=== PATIENT | female | born 1960 | race Two or more races ===

== ENCOUNTER 2021-04-19 14:13 | Outpatient (CLI) | payer BC, SELFPAY ==
--- NOTE | ~2021-04-19 | US_ITS ---
EXAMINATION: US thyroid DATE: 04/19/2021 15:20 INDICATION: Nontoxic goiter TECHNIQUE: Multiple ultrasound images of the thyroid were obtained. COMPARISON: None. FINDINGS: The right thyroid lobe measures 7.6 x 2.6 x 2.8 cm. The left thyroid lobe measures 6.6 x 2.4 x 2.9 c m. The isthmus measures 9 mm in thickness. No discrete nodules identified. There is heterogeneous ech ogenicity with coarsened echotexture and increased vascular flow on color Doppler throughout the thyr oid gland. IMPRESSION: 1. Enlarged heterogeneous and hypervascular thyroid consistent with thyroiditis. Reviewed, dictated and finalized at [facility]. [facility]IST IMPRESSION: 1. Enlarged heterogeneous and hypervascular thyroid consistent with thyroiditis .
--- NOTE | ~2021-04-19 | DEXA_ITS ---
Bone Density Report Name: JOSE MANUEL QUESADA Age: 60 Sex: Female Ethnicity: Date of : 1960 Indication: postmenopausal; Referring Provider: Ernesto, Adela Graham Study: Bone densitometry was performed. Exam Date: April 19, 2021 Accession number: [id number] Bone Density: Region BMD T-score Z-score Classification AP Spine (L1-L4) 0.804 -2.2 -0.8 Osteopenia Femoral Neck (Left) 0.621 -2.1 -0.7 Osteopenia Total Hip (Left) 0.731 -1.7 -0.7 Osteopenia Total Hip Bilateral Avg 0.732 -1.7 -0.7 Osteopenia Femoral Neck (Right) 0.567 -2.5 -1.2 Osteoporosis Total Hip (Right) 0.731 -1.7 -0.7 Osteopenia World Health Organization criteria for BMD impression classify patients as: Normal (T-score at or above -1.0), Osteopenia (T-score between -1.0 and -2.5), or Osteoporosis (T-score at or below -2.5). 10-year Fracture Risk: FRAX not reported because: Some T-score for Spine Total or Hip Total or Femoral Neck at or below -2.5 Clinical Information Provided by Patient: Has used the following medications: Vitamin D, Calcium Patient maximum height was 64 Menopause Age: 45 Onset of menses at age 14 Number of children 8 Impression: The patient has osteoporosis, based on the Right Femoral Neck T-score. Discussion: INCREASED RISK OF FRACTURE. BONE DENSITY IS UNDESIRABLY LOW AT ONE OR MORE SKELETAL SITES, CONSISTENT WITH POSTMENOPAUSAL OSTEOPOROSIS. This patient's lowest T-score meets the World Health Organization's (WHO) criteria for osteoporosis at one or more sites (T-score -2.5 or below). In untreated patients, the risk of osteoporotic fracture increases approximately two-fold for each 1.0 SD decrease in T-score. Low bone density is not the only risk factor for fracture; also consider factors such as patient's age, frailty or poor health, risk of falling, risk of injury, previous osteoporotic fracture, family history of osteoporosis, cigarette smoking, low body weight, etc. Not everyone with low bone mineral density has osteoporosis; osteomalacia and other metabolic bone disorders should also be considered. Patients who have osteoporosis should be evaluated for specific diseases and conditions (secondary causes) that may cause or contribute to bone loss. The [place] [employer]ocr[employer] (AACE) and National Osteoporosis Foundation (NOF) recommend pharmacologic intervention for all postmenopausal women whose T-score is in this range. The patient should follow a healthful lifestyle (good nutrition with adequate calcium and vitamin D, and appropriate weight-bearing exercise). Follow-Up: Consider a repeat BMD and Vertebral Fracture Assessment (VFA) exam in 2 years or sooner if medically necessary, to reassess this patient's status. Reported by: [facility] on 04/19/2021 2:39:00 PM.
== END 2021-04-19 14:14 | disposition home or self-care (01) ==
LOC: ANHIMG 14:16
PROVIDERS: PCP Family Medicine; Visit Provider Internal Medicine Endocrinology, Diabetes & Metabolism
DX: M81.0 Age-related osteoporosis without current pathological fracture (principal); Z13.820 Encounter for screening for osteoporosis; E06.9 Thyroiditis, unspecified; M85.88 Other specified disorders of bone density and structure, other site; M85.851 Other specified disorders of bone density and structure, right thigh; M85.852 Other specified disorders of bone density and structure, left thigh; E04.9 Nontoxic goiter, unspecified
CPT/HCPCS: 76536; 77080

== ENCOUNTER 2023-04-15 09:17 | Outpatient (CLI) | payer BC, SELFPAY ==
--- NOTE | ~2023-04-15 | MM_ITS ---
EXAMINATION: MM screening tod BI w azam HISTORY: Screening mammogram TECHNIQUE: Craniocaudal and mediolateral oblique 3-D tomosynthesis images were obtained and synthetic 2-D images were generated. CAD analysis was submitted and interpreted. COMPARISON: No prior mammogram is available for comparison at this institution. BREAST PARENCHYMAL COMPOSITION: There are scattered areas of fibroglandular density. FINDINGS: There is no evidence of suspicious mass, calcification, or architectural distortion to sugg est malignancy in either breast. IMPRESSION: 1. No mammographic evidence of malignancy. 2. Recommend routine screening mammography in one year. BI-RADS Category 1: Negative Reviewed, dictated and finalized at location [facility]. IT COLLECTOR
== END 2023-04-15 09:18 | disposition home or self-care (01) ==
LOC: ANHIMG 09:21
PROVIDERS: PCP Family Medicine; Visit Provider Family Medicine
DX: Z12.31 Encounter for screening mammogram for malignant neoplasm of breast (principal)
CPT/HCPCS: 77063; 77067